=== PATIENT | female | born 1990 | race Caucasian/White ===

== ENCOUNTER 2023-10-29 05:11 | Emergency (ER) | payer OTHER ==
[2023-10-29] MEDS ORDERED: PROCHLORPERAZINE 10 MG/2 ML VIAL ONE (06:18)
[2023-10-29] MEDS ORDERED: diphenhydrAMINE 50 MG/ML VIAL ONE (06:19)
[2023-10-29] MEDS ORDERED: KETOROLAC 15 MG/ML VIAL ONE (06:19)
[2023-10-29] MEDS ORDERED: IBUP-2218 PO (07:42)
[2023-10-29] MEDS ORDERED: ACET-9496 PO (07:42)
[2023-10-29 07:51] VITALS: BP 108/56; PULSE 78; RESP 16; TEMP 98.3; O2SAT 96
== END 2023-10-29 07:57 | disposition home or self-care (01) ==
LOC: MED 05:11
DX: R51.9 Headache, unspecified (principal); Z79.899 Other long term (current) drug therapy
CPT/HCPCS: 99282; J0780; J1200; J1885